=== PATIENT | female | born 2000 | race Caucasian/White ===

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

== ENCOUNTER 2019-03-31 20:05 | Emergency (ER) | payer OTHER, SELFPAY ==
[2019-03-31 20:06] VITALS: BP 121/71; PULSE 70; RESP 18; TEMP 36.7; O2SAT 98; BMI 27.1
--- NOTE | 2019-03-31 20:29 | ED.VISSUMM ---
- ER Visit Summary Date of Service: 03/31/19 Chief Complaint: Rash History of Present Illness: The patient is a [address] Hussein. Patient [place]. She reports she has a rash on her left leg that began 3 days ago. It does itch. She reports that there were ticks around, but she does not believe that she had one on her. She denies any other complaints. Physical Examination: Vitals: Stable. Afebrile. General: Well-nourished and well-developed. Head: Normocephalic atraumatic. Neck: Supple, no lymphadenopathy. No JVD. Nontender. Cardiovascular: Regular rate and rhythm. No murmurs. Respiratory: No respiratory distress. Clear to auscultation bilaterally. Abdominal: Soft, nontender, nondistended, normal bowel sounds. No guarding, rebound, or peritoneal signs. Back: Nontender. Extremities: Nontender, no edema. Skin: Rash to the anterior left leg consistent with erythema migrans. There is no induration or fluctuance. Neurologic: Alert and oriented ?3. Cranial nerves II through XII are intact. Normal strength and sensation. Psych: Normal affect. Emergency Department Course and Treatment: Patient was reassured and treated with doxycycline. Treatment Plan: Patient will be discharged on doxycycline instructed to follow-up Dr. Bowser in 1 week for another exam. Return to the emergency department for any worsening symptoms. Disposition: To home in improved and stable condition. Impression: 1. Erythema migrans left leg. This note was generated with [employer] dictation software. It may contain incorrect words, spelling, and punctuation that were not noted in review of the chart prior to signing ED Disposition - Plan for ED Patient: Disposition: Home or Assisted Living Instructions: ED Lyme Disease Prescriptions: Doxycycline 100 mg PO BID #20 capsule Referrals: Machelle Hussein DO [Primary Care Provider] - 1 Week
[2019-03-31] MEDS: Doxycycline 100 MG CAPSULE PO (20:36)
== END 2019-03-31 20:40 | disposition home or self-care (01) ==
LOC: ED 20:39
PROVIDERS: Emergency Provider Emergency Medicine; Family Provider Family Medicine; PCP Family Medicine
DX: A26.0 Cutaneous erysipeloid (principal)
CPT/HCPCS: 99283

== ENCOUNTER → 2019-11-28 13:41 | Outpatient (CLI) | payer BC, SELFPAY ==
--- NOTE | 2019-11-28 13:47 | RAD_ITS ---
STUDY: X-RAY - THORACIC SPINE REASON FOR EXAM: Female, 19 years old. acute pain when lifting kettlebell 2 days go TECHNIQUE: 3 view(s) of the thoracic spine were obtained. COMPARISON: None. FINDINGS: Normal kyphosis of the thoracic spine. There is no substantial scoliosis. Normal thoracic vertebrae and endplates. Normal disc space heights. The soft tissue structures are unremarkable. RAD/Thoracic Spine 3 Views IMPRESSION: Normal x-ray examination of the thoracic spine. Electronically Signed: Papo Limon MD ([place]) at 15:33 EST , Service support ,
== END ==
PROVIDERS: PCP Family Medicine; Referring Provider Family Medicine; Visit Provider Family Medicine
DX: M54.9 Dorsalgia, unspecified (principal)
CPT/HCPCS: 72072